=== PATIENT | female | born 1990 | race Caucasian/White ===

== ENCOUNTER 2020-07-10 07:23 | Inpatient (IN) | payer BC ==
[2020-07-10] MEDS ORDERED: Sodium Chloride 0.9% 10 ML Syringe FLUSH PRN ×2 (09:05→18:57)
[2020-07-10] MEDS ORDERED: Acetaminophen 325 MG Tab PO PRN ×2 (09:05→20:40)
[2020-07-10] MEDS ORDERED: Ondansetron 8 MG in Sodium Chloride 0.9% 50 ML IV PRN ×2 (09:14→09:23)
[2020-07-10] MEDS ORDERED: Oxytocin/Normal Saline 30 UNIT/500 ML BAG IV SCH ×2 (09:15→19:00)
[2020-07-10] MEDS ORDERED: Misoprostol 400 MCG (4 X 100 MCG TAB) RECTAL PRN ×2 (09:19→20:40)
[2020-07-10] MEDS ORDERED: Carboprost Tromethamine 250 MCG/1 ML Amp IM PRN ×2 (09:19→20:40)
[2020-07-10] MEDS ORDERED: Tranexamic Acid 1,000 MG in Sodium Chloride 0.9% 100 ML IV PRN ×3 (09:19→20:40)
[2020-07-10] MEDS ORDERED: Methylergonovine 0.2 MG/1 ML Amp IM PRN ×2 (09:19→20:40)
[2020-07-10] MEDS ORDERED: fentaNYL 100 MCG/2 ML SDV IVPUSH PRN (09:36)
[2020-07-10] MEDS: Lactated Ringers 1,000 ML IV SCH ×3 (09:50→19:50)
[2020-07-10] MEDS ORDERED: Ondansetron 4 MG/2 ML SDV IVPUSH PRN ×2 (10:43→20:40)
[2020-07-10] MEDS ORDERED: Famotidine 20 MG/2 ML SDV IVPUSH PRN (13:23)
[2020-07-10] MEDS ORDERED: ePHEDrine 50 MG/ML SDV IVPUSH ONE (15:00)
[2020-07-10] MEDS ORDERED: fentaNYL 100 MCG/2 ML SDV ITHECAL ONE (15:10)
[2020-07-10] MEDS ORDERED: Sodium Chloride 0.9% 20 ML SDV ONE (15:10)
[2020-07-10] MEDS ORDERED: EPINEPHrine 1 MG/1 ML Amp ONE ×2 (15:10→15:15)
[2020-07-10] MEDS ORDERED: fentaNYL 100 MCG/2 ML SDV ONE (15:15)
[2020-07-10] MEDS ORDERED: Sodium Bicarbonate 4.2% 2.5 MEQ/5 ML SDV ONE (15:16)
--- NOTE | 2020-07-10 16:01 | PCM.SN.2 ---
- Free Text/Narrative Note: Intrathecal. Sitting position, sterile prep and drape. 1% lidocaine w bicarb for skinwheal to L2 L3 interspace. Introducer, 24 ga pencan x 1. Pos CSF, neg heme, neg parasthesia. 0.1 ml pf 1:1000 epi, 20 mcg pf sufenta, 30 mcg pf fentanyl, 0.4 ml pf NS and 6 mg of 0.75% pf marcaine injected after CSF aspiration. Pt to L lateral position. Procedure time 1510 to 1545
[2020-07-10] MEDS ORDERED: ePHEDrine 50 MG/ML SDV ONE (16:53)
[2020-07-10] MEDS ORDERED: Citric Acid/Sodium Citrate Solution 30 ML Cup PO ONE (18:57)
[2020-07-10] MEDS ORDERED: ceFAZolin 2 GM in Premix Bag 1 BAG IV ONE (18:57)
[2020-07-10] MEDS ORDERED: Lactated Ringers 1,000 ML IV SCH ×2 (19:00→20:45)
--- NOTE | 2020-07-10 19:08 | PCM.PNLD ---
Labor Progress Note - VS & Meds Vital Signs: Last Vital Signs Temp 36.3 C 07/10/20 07:45 Pulse 92 07/10/20 07:45 Resp 16 07/10/20 07:45 BP 133/75 07/10/20 07:45 Pulse Ox 97 07/10/20 07:45 Active Medications: Current Medications Acetaminophen (Acetaminophen 325 Mg Tab) 650 mg PO Q4H PRN PRN Reason: Pain (1-3)/Fever Carboprost Tromethamine (Carboprost Tromethamine 250 Mcg/1 Ml Amp) 250 mcg IM ASDIRECTED PRN PRN Reason: HEMORRHAGE Famotidine (Famotidine 20 Mg/2 Ml Sdv) 20 mg IVPUSH DAILY PRN PRN Reason: Heartburn Last Admin: 07/10/20 14:00 Dose: 20 mg Documented by: Fentanyl (Fentanyl 100 Mcg/2 Ml Sdv) 100 mcg IVPUSH Q1H PRN PRN Reason: Pain (moderate 4-6) Last Admin: 07/10/20 13:54 Dose: 100 mcg Documented by: Lactated Ringer's (Ringers, Lactated) 1,000 mls @ 999 mls/hr IV ASDIRECTED AZAR Last Admin: 07/10/20 09:50 Dose: 999 mls/hr Documented by: Oxytocin/Sodium Chloride (Pitocin In Ns 30 Unit/500 Ml) 30 unit in 500 mls @ 2 mls/hr IV TITRATE AZAR; Protocol Last Titration: 07/10/20 11:30 Dose: 8 munits/min, 8 mls/hr Documented by: Tranexamic Acid 1,000 mg/ (Sodium Chloride) 110 mls @ 660 mls/hr IV ONETIME PRN PRN Reason: Bleeding Methylergonovine Maleate (Methylergonovine 0.2 Mg/1 Ml Amp) 0.2 mg IM ASDIRECTED PRN PRN Reason: Hemorrhage Misoprostol (Misoprostol 400 Mcg (4 X 100 Mcg Tab)) 800 mcg RECTAL ASDIRECTED PRN PRN Reason: Hemorrhage Ondansetron HCl (Ondansetron 4 Mg/2 Ml Sdv) 4 mg IVPUSH Q6H PRN PRN Reason: nausea Last Admin: 07/10/20 14:53 Dose: 4 mg Documented by: Sodium Chloride (Sodium Chloride 0.9% 10 Ml Syringe) 10 ml FLUSH ASDIRECTED PRN PRN Reason: Keep Vein Open Discontinued Medications Ephedrine Sulfate (Ephedrine 50 Mg/Ml Sdv) Confirm Administered Dose 50 mg .ROUTE .STK-MED ONE Stop: 07/10/20 16:54 Epinephrine HCl (Epinephrine 1 Mg/1 Ml Amp) Confirm Administered Dose 1 mg .RO [place] .STK-MED ONE Stop: 07/10/20 15:16 Last Admin: 07/10/20 16:46 Dose: Not Given Documented by: Fentanyl (Fentanyl 100 Mcg/2 Ml Sdv) Confirm Administered Dose 100 mcg .ROUTE .STK-MED ONE Stop: 07/10/20 15:16 Last Admin: 07/10/20 16:46 Dose: Not Given Documented by: Ondansetron HCl 8 mg/ Sodium (Chloride) 54 mls @ 200 mls/hr IV Q4H PRN PRN Reason: Nausea Sodium Bicarbonate (Sodium Bicarbonate 4.2% 2.5 Meq/5 Ml Sdv) Confirm Administered Dose 2.5 meq .ROUTE .STK-MED ONE Stop: 07/10/20 15:17 Last Admin: 07/10/20 16:46 Dose: Not Given Documented by: Sufentanil Citrate (Sufentanil 50 Mcg/1 Ml Amp) Confirm Administered Dose 50 mcg .ROUTE .STK-MED ONE Stop: 07/10/20 15:17 Last Admin: 07/10/20 16:46 Dose: Not Given Documented by: - Uterine Contractions Uterine Monitoring Mode: External Cidra Contraction Frequency (min): 3 Contraction Intensity: Moderate to Strong Uterine Resting Tone: Soft - Monitoring Monitor Mode: Doppler/Auscultation Heart Rate (FHR) Baseline: 150 Heart Rate (FHR) Variability: Moderate (6-25 bmp) Strip Review: Category II - Vaginal Exam Dilation (cm): Complete Station: 1 Cervical Position: Anterior Sterile Vaginal Exam Performed By: Junie Alaniz - Labor Progress (Free Text) Labor Progress: Patient was checked at 1715 and was noted to be complete. Patient began pushing shortly after with good progression of head noted. After approximately 1 hour of pushing, positioning was checked and head was noted to be asynclitic with occiput on the maternal left. After verbal consent was obtained, a low-profile vacuum was applied. Patient pushed well with good movement. There was one pop-off. After the pop-off, application of the vacuum became difficult due to caput and hair so a mighty vac was applied. Good head movement was noted with 1 contraction. There was a popoff during the 2nd contraction. head had moved to 1+ position with caput at 2+ position. Patient continued to push but with minimal movement of head. Some vaginal bleeding was also noted. After an additional 10 minutes of pushing with no movement of the head, positioning was again assessed and was noted to be OP. Therefore, I discussed options of 3rd attempt with the vacuum, continued pushing or primary section. Due to lack of head descent, maternal fatigue, and increased time of FHT recovery after pushing, the decision was made to proceed with primary section. Risks were discussed in detail, including but not limited to bleeding, maternal infection, injury and maternal injury. Written consent was obtained. Will proceed to OR DRISS. Dr. Junie Alaniz MD
[2020-07-10] MEDS ORDERED: Ondansetron 4 MG/2 ML SDV IV ONE (19:30)
[2020-07-10] MEDS ORDERED: Lactated Ringers 1,000 ML IV ONE (19:30)
[2020-07-10] MEDS ORDERED: Sodium Chloride 0.9% 10 ML Syringe IV ONE (19:30)
[2020-07-10] MEDS ORDERED: ePHEDrine 50 MG/ML SDV IV ONE ×2 (19:45→20:15)
[2020-07-10] MEDS ORDERED: Morphine PF 1 MG/ML Amp ITHECAL ONE (19:45)
[2020-07-10] MEDS ORDERED: Dexamethasone 4 MG/ML SDV IV ONE (19:45)
[2020-07-10] MEDS ORDERED: Ketorolac 30 MG/ML SDV IVPUSH ONE (20:15)
[2020-07-10] MEDS ORDERED: diphenhydrAMINE 50 MG/ML SDV IVPUSH PRN (20:40)
[2020-07-10] MEDS ORDERED: Naloxone 2 MG/2 ML Syringe IVPUSH PRN (20:40)
[2020-07-10] MEDS ORDERED: ePHEDrine 50 MG/ML SDV IVPUSH PRN (20:40)
--- NOTE | 2020-07-10 20:49 | PCM.PRNOTE ---
- Free Text/Narrative Note: Section Operative Report Date of Surgery: 07/10/2020 Surgeon: Junie Alaniz MD Paid Search Manager: MD Vidhya Chang, MS3 Pre-Operative Diagnosis: 39w3d malpresentation Failed vacuum delivery Post-Operative Diagnosis: 39w3d malpresentation Failed vacuum delivery LGA infant Procedure Performed: Primary low transverse section Anesthesia: Spinal EBL: 400 mL IVF: 800 mL Drains: Santos catheter with 200 mL of urine output Specimens: None Complications: None apparent Findings: Live male infant in OP position; APGARS: 9 at 1 minutes and 10 at 5 minutes. Weight: 4140 grams or 9 pounds, 2 ounces. Normal uterus, tubes, and ovaries. 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 Patient progressed to complete dilation and pushed for 1 hour 15 minutes. Due to malpresentation and maternal fatigue, a vacuum delivery was attempted but was unsuccessful (please see labor note for details). Patient was counseled on section for well being. She was counseled on the risks of . The patient understood that the risks of section include, but are not limited to, visceral or vascular injury, infection, blood loss and need for blood transfusion, prolonged hospitalization, and reoperation. The patient stated understanding and desired to proceed. All questions were answered. Procedure in Detail: The patient was taken to the operating room where spinal anesthesia was placed. Two grams of cefazolin (Ancef) were given for infection prophylaxis. She was then prepped and draped in routine fashion in dorsal supine position with a left chinchilla tilt. Santos catheter and pneumoboots were placed. A Pfannenstiel skin incision was made with a scalpel. The incision was carried down to the fascia sharply. The fascia was incised and extended laterally. The superior aspect of the fascia was grasped with Iván clamps; the underlying rectus muscle and pyramidalis was dissected off with sharp and blunt technique. In a similar fashion, the inferior aspect of the fascia was elevated with Iván clamps and the rectus muscle was dissected off. Hemostasis was achieved with the Bovie. The rectus musculature was in the midline down to the level of the pubic symphysis. Pre-peritoneal fatty tissue was bluntly dissected to expose the peritoneum. The peritoneum was found to be free of adherent bowel or bladder tissue and entered bluntly. The peritoneal opening was then extended superiorly and inferiorly to the bladder reflection with good visualization of the bladder. The Javi retractor was inserted. Intraabdominal survey revealed scant, clear peritoneal fluid and thinned-out lower uterine segment. The vesicouterine peritoneum was opened with a scissors and the bladder flap was developed. The lower uterine segment was incised with a scalpel. The amniotic sac was ruptured with an Allis clamp and clear fluid was noted. The uterine incision was extended bluntly with lateral and upward traction. The fetus was in OP position. The head was elevated out of the maternal pelvis with special attention paid to avoid using the uterine incision as a fulcrum. Pressure was applied to the head through the vagina by Elsy Mitchell RN. Gentle fundal pressure was applied once the head was brought into the incision. The infant was delivered with minimal difficulty. Bulb suctioning of the infant's nose and mouth was performed on the operative field. The cord was clamped and cut in standard fashion, and the was handed over to the awaiting nursery staff. IV oxytocin was initiated to facilitate uterine contractions. The placenta was delivered intact with manual message of the uterine fundus along with gentle cord traction. The inside of the uterus was gently wiped with a lap sponge to assure complete removal of remaining products of conception. The uterine incision was closed with 0 -Vicryl suture in a running locked fashion. A small area of bleeding along the left side of the incision was noted to be bleeding. A figure-of-8 stitch was placed using 2-0 Vicryl, and subsequent hemostasis was noted. A second imbricating layer of 0-Vicryl was also placed. The incision was inspected and hemostasis was achieved. The ovaries and tubes were visualized and found to be normal. The blood clots and fluid were wiped out of the abdomen and pelvis with moist laparotomy sponges. The uterine incision was re-inspected along with all other incised surfaces and good hemostasis was confirmed. The Javi retractor was removed. Peritoneal layer was closed with 2-0 Vicryl. The fascia was then closed with 0 looped PDS suture with care not to include any underlying abdominal contents. The skin was closed with 4-0 Monocryl suture on a Don needle in a subcuticular fashion. Sponge and instrument counts were reported as correct times two. Pt tolerated procedure well and was taken to PACU in stable condition. Junie Alaniz MD
[2020-07-10] MEDS: Simethicone 80 MG Tab.Chew PO SCH (23:32)
[2020-07-11] MEDS: Ketorolac 30 MG/ML SDV IVPUSH SCH ×3 (02:13→16:19)
[2020-07-11] MEDS: Lactated Ringers 1,000 ML IV SCH (05:37)
--- NOTE | 2020-07-11 06:50 | HP ---
PRIMARY OBSTETRICAL PROVIDER: Junie Alaniz MD. HISTORY OF PRESENT ILLNESS: The patient is a 30-year-old, G1, P0, at 39 weeks 3 days gestation based on last menstrual period of 10/08/2019 and confirmed by a 21 weeks 4 days ultrasound with estimated date of delivery of 07/14/2020, who presents for induction of labor secondary to Carol Ann-Danlos syndrome, extreme discomfort during related to connective tissue disease. Otherwise, the patient has been doing well with no recent change. She denies any abdominal contraction or abdominal pain, change in vaginal discharge or vaginal bleeding, leakage of vaginal fluid or clear fluid from the vagina, chest pain, shortness of breath, headaches, changes in vision, nausea, vomiting, fevers, chills. The patient does have impaired glucose tolerance in and did have a partial placenta previa early in , which has since resolved. The patient has no complaints. OBSTETRIC HISTORY: G1, P0. LABS: ABO blood group, B positive. Antibody screen, negative. Rubella, positive. Syphilis, nonreactive. Hep B surface antigen, nonreactive. HIV, nonreactive. Gonorrhea and chlamydia, not detected. Hep C antibody, nonreactive. Wet prep, negative. Glucose 1-hour, 161. Glucose tolerance test 3- hour, passed. Group B Streptococcus, negative. PAST MEDICAL HISTORY: Carol Ann-Danlos syndrome, obstructive sleep apnea, fibromyalgia, depression/anxiety. PAST SURGICAL HISTORY: Ovarian cyst removal of the right in 2002 (9 cm). Laparoscopic cholecystectomy in 2009. Bunionectomy bilaterally in 2002. MEDICATIONS: vitamin, ondansetron p.r.n., albuterol p.r.n., diclofenac 1% transdermal gel p.r.n., famotidine 20 mg, cyclobenzaprine 5 mg, tizanidine 4 mg, orphenadrine 100 mg. ALLERGIES: Gluten (intolerance, causes nausea). SOCIAL HISTORY: The patient denies cigarette smoking or drug use now or in the past. The patient is currently not using alcohol. She is to [employer]. Works from home. This is her first . FAMILY HISTORY: Mother and father have arthritis. Mother has asthma. Maternal grandmother has breast cancer. Paternal grandfather, cancer. Maternal grandfather and paternal grandmother, diabetes. Mother, diabetes. Mother, heart disease. Father, hypertension. Brother, no known diseases. Mother also had uterine fibroids and hysterectomy at age 35, Carol Ann-Danlos syndrome. Sister also has Carol Ann-Danlos syndrome. Brother also has Carol Ann-Danlos syndrome. Maternal grandmother had uterine fibroids and hysterectomy. No family history of colon cancer. REVIEW OF SYSTEMS: General: No increased fatigue, malaise. Respiratory: No shortness of breath. Cardiovascular: No chest pain or acute change in lower extremity edema. Gastrointestinal: No abdominal pain. Sporadic contractions. : No vaginal bleeding, change in vaginal discharge, or leakage of fluid from the vagina. Neuromuscular: Significant for hip and back discomfort, worse on the left. PHYSICAL EXAMINATION: Admission Vitals: Height 5 feet 10 inches, weight 221 pounds, temperature 97.4 degrees Fahrenheit, pulse 92 beats per minute, blood pressure 133/75, respiratory rate 16 breaths per minute, O2 saturation by pulse oximetry 97%. General: Alert, well-appearing female, in no acute distress, sitting up in bed. Lungs: Clear to auscultation bilaterally with no adventitial breath sounds. Chest: Symmetric chest expansion. Heart: Regular rate and rhythm with no murmur. Abdomen: Gravid, nontender. FHT present with FHT category 1 tracing, baseline of 145, multiple accelerations, no decelerations. Tocometer revealing contractions every approximately 5 to 9 minutes. Pelvic: Normal female external genitalia with normal vulva, vagina, and cervix. Dilated to 5 cm, 80% effaced, -1 station. Bag intact. Extremities: Nontender. No redness or erythema. Lower extremities, no edema. Skin: No lesions noted. Normal color and turgor. ASSESSMENT: 1. Intrauterine at 39 weeks 3 days gestation based on last menstrual period. 2. 1, para 0. 3. Carol Ann-Danlos syndrome. 4. Impaired glucose tolerance in with a normal 3 hour glucose tolerance test. PLAN: We will admit the patient for induction of labor with labor augmentation with Pitocin and continue normal nursing cares as clinically indicated. We will plan for artificial rupture of membranes when clinically indicated. Maternal pain management will be accomplished via intrathecal anesthesia as well as supplemental fentanyl and nitrous gas as needed. Anticipate normal spontaneous vaginal delivery. Post delivery, we will closely monitor infant on blood glucose. [facility] /[id number] Patient was personally seen and examined with the medical student. I reviewed the noted scribed on my behalf and necessary changes have been made to reflect my opinion on the history, exam, assessment, and plan. Junie Alaniz MD [facility]
[2020-07-11] MEDS: Prenatal Multivitamin with Calcium/Folic Acid/Iron Tab PO SCH (08:20)
[2020-07-11] MEDS: Simethicone 80 MG Tab.Chew PO SCH ×4 (08:20→20:39)
--- NOTE | 2020-07-11 11:37 | PN ---
DATE: 07/11/2020 PRIMARY OBSTETRICAL PROVIDER: Junie Alaniz MD. PREOPERATIVE DIAGNOSES: 1. Intrauterine at 39 weeks 2 days gestation based on last menstrual period. 2. 1, para 0. 3. Carol Ann-Danlos syndrome. 4. Impaired glucose tolerance in with a normal 3-hour glucose tolerance test. 5. Induction of labor. 6. malpresentation. 7. Failed vacuum delivery. POSTOPERATIVE DIAGNOSES: 1. Intrauterine at 39 weeks 2 days gestation based on last menstrual period, status post primary low-transverse section. 2. 1, para 1-0-0-1. 3. Carol Ann-Danlos syndrome. 4. Impaired glucose tolerance in with a normal 3-hour glucose tolerance test. 5. Induction of labor. 6. malpresentation, status post PLTC. 7. Failed vacuum delivery, status post PLTC. 8. Ahoml-tlb-fdafrrkxmzi-age infant. 9. Anemia of acute blood loss. SUBJECTIVE: The patient is doing well status post section with no complaints this morning. She states her pain is currently well controlled. She is having some mild abdominal tenderness, proportionate to her postoperative course. She denies any fevers, chills, chest pain, or shortness of breath. She has not attempted oral intake as of yet, but will be having some breakfast this morning. The patient did experience significant nausea throughout labor and even during delivery. Santos catheter in place. The patient is lying in bed with EULOGIO hose and sequential compression devices in place. To the patient's knowledge, her lochia is appropriate. The patient has initiated , and this appears to be going well so far. EBL 400 mL. OBJECTIVE: Vital Signs: Temperature 98.0 degrees Fahrenheit, pulse 87 beats per minute, blood pressure 112/54 mmHg, respiratory rate 16 breaths per minute. General: Patient is sleeping soundly in bed, but awakens to voice, becomes alert, and appears in no acute distress with appropriate affect. Heart: Regular rate and rhythm. Normal S1, S2 without murmur. Lungs: Clear to auscultation bilaterally. No adventitial breath sounds. Symmetric air entry and chest expansion bilaterally. Abdomen: Soft, nontender. Fundus firm at the level of the umbilicus. Dressing in place, clean, dry, and intact. Extremities: Nontender, nonerythematous lower extremities with scant peripheral edema. LABORATORY DATA: hematology: White blood cell count 15.8, hemoglobin 10.1, platelet count 195. Hematology on admission: White blood cell count 7.9, hemoglobin 13.6, and platelet count 207. SARS-CoV-2 RNA (BETI) negative. ASSESSMENT AND PLAN: See above for postoperative diagnoses. The patient is recovering well status and post section. We will continue normal postoperative and routine cares with encouragement of time with infant at the breast. We will advance activity as tolerated and anticipate discharge home on day #3. The patient appears to be asymptomatic from anemia with normal vital signs. We will continue to monitor and will resume vitamin and initiate iron supplementation (325 mg ferrous sulfate daily). FOLLOWUP PHYSICIAN: Junie Alaniz MD [facility] /[id number] Patient was personally seen and examined with the medical student. I reviewed the noted scribed on my behalf and necessary changes have been made to reflect my opinion on the history, exam, assessment, and plan. Junie Alaniz MD [facility]
[2020-07-11] MEDS: Docusate Sodium 100 MG Cap PO PRN (13:25)
[2020-07-11] MEDS: Acetaminophen/oxyCODONE 325-5 MG Tab PO PRN ×3 (13:26→23:48)
[2020-07-11] MEDS: Ferrous Sulfate 325 MG Tab PO SCH (17:32)
[2020-07-12] MEDS: Ibuprofen 800 MG Tab PO PRN ×3 (00:41→19:11)
[2020-07-12] MEDS: Acetaminophen/oxyCODONE 325-5 MG Tab PO PRN ×4 (04:22→19:12)
[2020-07-12] MEDS: Ferrous Sulfate 325 MG Tab PO SCH (08:46)
[2020-07-12] MEDS: Docusate Sodium 100 MG Cap PO PRN ×2 (08:46→19:12)
[2020-07-12] MEDS: Prenatal Multivitamin with Calcium/Folic Acid/Iron Tab PO SCH (08:46)
[2020-07-12] MEDS: Simethicone 80 MG Tab.Chew PO SCH ×3 (08:47→21:00)
--- NOTE | 2020-07-12 09:45 | PCM.PNPP ---
- General Info Date of Service: 07/12/20 Subjective Update: PPD#2. Overall, doing well. Santos has been removed, and she is urinating. Has only bed out of bed for short amounts of time. Does complain of some nausea this morning. No fever, chills, dizziness, lightheadedness. Drainage on dressing has remained stable. is going well. Patient did report right thigh numbness yesterday--this remains unchanged. No concerns per patient or per nursing staff. Functional Status: Reports: Pain Controlled, Tolerating Diet, Ambulating, Urinating - Review of Systems General: Reports: Fatigue HEENT: Reports: No Symptoms Pulmonary: Reports: No Symptoms Cardiovascular: Reports: No Symptoms Gastrointestinal: Reports: Nausea. Denies: Vomiting Genitourinary: Reports: No Symptoms Musculoskeletal: Reports: Back Pain, Leg Pain Skin: Reports: No Symptoms Neurological: Reports: Numbness (Right lateral thigh) Psychiatric: Reports: No Symptoms - General Info Date of Service: 07/12/20 - Patient Data Vital Signs - Most Recent: Last Vital Signs Temp 36.7 C 07/12/20 04:00 Pulse 87 07/12/20 04:00 Resp 16 07/12/20 04:00 BP 105/68 07/12/20 04:00 Pulse Ox 98 07/11/20 20:00 Weight - Most Recent: 100.244 kg I&O - Last 24 Hours: Intake & Output 07/11/20 07/12/20 07/12/20 22:59 06:59 14:59 Intake Total 900 Output Total 175 327% Balance -85 -327% Med Orders - Current: Current Medications Acetaminophen (Acetaminophen 325 Mg Tab) 650 mg PO Q6H PRN PRN Reason: Mild Pain (1-3) or Fever Carboprost Tromethamine (Carboprost Tromethamine 250 Mcg/1 Ml Amp) 250 mcg IM ONETIME PRN PRN Reason: Bleeding Diphenhydramine HCl (Diphenhydramine 50 Mg/Ml Sdv) 25 mg IVPUSH Q6H PRN PRN Reason: Itching or Nausea Docusate Sodium (Docusate Sodium 100 Mg Cap) 100 mg PO Q12H PRN PRN Reason: Constipation Last Admin: 07/12/20 08:46 Dose: 100 mg Documented by: Ephedrine Sulfate (Ephedrine 50 Mg/Ml Sdv) 5 mg IVPUSH SEECOMMENT PRN PRN Reason: Other Famotidine (Famotidine 20 Mg/2 Ml Sdv) 20 mg IVPUSH DAILY PRN PRN Reason: Heartburn Last Admin: 07/10/20 14:00 Dose: 20 mg Documented by: Ferrous Sulfate (Ferrous Sulfate 325 Mg Tab) 325 mg PO WITHBREAKFAST [facility] Last Admin: 07/12/20 08:46 Dose: 325 mg Documented by: Lactated Ringer's (Ringers, Lactated) 1,000 mls @ 125 mls/hr IV ASDIRECTED [facility] Last Admin: 07/11/20 05:37 Dose: 125 mls/hr Documented by: Lactated Ringer's (Ringers, Lactated) 1,000 mls @ 500 mls/hr IV .BOLUS [facility] Last Admin: 07/10/20 17:30 Dose: 500 mls/hr Documented by: Oxytocin/Sodium Chloride (Pitocin In Ns 30 Unit/500 Ml) 30 unit in 500 mls @ 2 mls/hr IV TITRATE [facility]; Protocol Last Titration: 07/10/20 23:45 Dose: 0 munits/min, 0 mls/hr Documented by: Lactated Ringer's (Ringers, Lactated) 1,000 mls @ 125 mls/hr IV ASDIRECTED [facility] Tranexamic Acid 1,000 mg/ (Sodium Chloride) 110 mls @ 660 mls/hr IV ONETIME PRN PRN Reason: Bleeding Ibuprofen (Ibuprofen 800 Mg Tab) 800 mg PO Q8H PRN PRN Reason: Cramping Last Admin: 07/12/20 08:46 Dose: 800 mg Documented by: Methylergonovine Maleate (Methylergonovine 0.2 Mg/1 Ml Amp) 0.2 mg IM ONETIME PRN PRN Reason: Excessive Vaginal Bleeding Misoprostol (Misoprostol 400 Mcg (4 X 100 Mcg Tab)) 800 mcg RECTAL ASDIRECTED PRN PRN Reason: Excessive bleeding Naloxone HCl (Naloxone 2 Mg/2 Ml Syringe) 0.1 mg IVPUSH SEECOMMENT PRN PRN Reason: Respiratory Depression Ondansetron HCl (Ondansetron 4 Mg/2 Ml Sdv) 4 mg IVPUSH Q4H PRN PRN Reason: Nausea/Vomiting Oxycodone/Acetaminophen (Acetaminophen/Oxycodone 325-5 Mg Tab) 1 tab PO Q4H PRN PRN Reason: Pain (moderate 4-6) Last Admin: 07/12/20 08:46 Dose: 1 tab Documented by: Oxycodone/Acetaminophen (Acetaminophen/Oxycodone 325-5 Mg Tab) 2 tab PO Q4H PRN PRN Reason: Pain (moderate 4-6) Last Admin: 07/12/20 04:22 Dose: 2 tab Documented by: Prenat Multivit/Cecil/Iron/Folic Ac ( Multivitamin With Calcium/Folic Acid/Iron Tab) 1 each PO DAILY [facility] Last Admin: 07/12/20 08:46 Dose: 1 each Documented by: Simethicone (Simethicone 80 Mg Tab.Chew) 160 mg PO QID [facility] Last Admin: 07/12/20 08:47 Dose: 160 mg Documented by: Sodium Chloride (Sodium Chloride 0.9% 10 Ml Syringe) 10 ml FLUSH ASDIRECTED PRN PRN Reason: Keep Vein Open Discontinued Medications Acetaminophen (Acetaminophen 325 Mg Tab) 650 mg PO Q4H PRN PRN Reason: Pain (1-3)/Fever Carboprost Tromethamine (Carboprost Tromethamine 250 Mcg/1 Ml Amp) 250 mcg IM ASDIRECTED PRN PRN Reason: HEMORRHAGE Citric Acid/Sodium Citrate (Citric Acid/Sodium Citrate Solution 30 Ml Cup) 30 ml PO ONETIME ONE Stop: 07/10/20 18:58 Last Admin: 07/10/20 19:30 Dose: 30 ml Documented by: Dexamethasone (Dexamethasone 4 Mg/Ml Sdv) 8 mg IV .STK-MED ONE Stop: 07/10/20 19:46 Ephedrine Sulfate (Ephedrine 50 Mg/Ml Sdv) Confirm Administered Dose 50 mg .ROUTE .STK-MED ONE Stop: 07/10/20 16:54 Last Admin: 07/10/20 20:02 Dose: Not Given Documented by: Ephedrine Sulfate (Ephedrine 50 Mg/Ml Sdv) 10 mg IVPUSH ONETIME ONE Stop: 07/10/20 15:01 Last Admin: 07/10/20 16:59 Dose: 10 mg Documented by: Ephedrine Sulfate (Ephedrine 50 Mg/Ml Sdv) 10 mg IV .STK-MED ONE Stop: 07/10/20 19:46 Ephedrine Sulfate (Ephedrine 50 Mg/Ml Sdv) 10 mg IV .STK-MED ONE Stop: 07/10/20 20:16 Epinephrine HCl (Epinephrine 1 Mg/1 Ml Amp) Confirm Administered Dose 1 mg .ROUTE .STK-MED ONE Stop: 07/10/20 15:16 Last Admin: 07/10/20 16:46 Dose: Not Given Documented by: Epinephrine HCl (Epinephrine 1 Mg/1 Ml Amp) 0.1 mg .XX .STK-MED ONE Stop: 07/10/20 15:11 Fentanyl (Fentanyl 100 Mcg/2 Ml Sdv) 100 mcg IVPUSH Q1H PRN PRN Reason: Pain (moderate 4-6) Last Admin: 07/10/20 13:54 Dose: 100 mcg Documented by: Fentanyl (Fentanyl 100 Mcg/2 Ml Sdv) Confirm Administered Dose 100 mcg .ROUTE .STK-MED ONE Stop: 07/10/20 15:16 Last Admin: 07/10/20 16:46 Dose: Not Given Documented by: Fentanyl (Fentanyl 100 Mcg/2 Ml Sdv) 30 mcg ITHECAL .STK-MED ONE Stop: 07/10/20 15:11 Lactated Ringer's (Ringers, Lactated) 1,000 mls @ 999 mls/hr IV ASDIRECTED [facility] Last Admin: 07/10/20 19:50 Dose: 999 mls/hr Documented by: Oxytocin/Sodium Chloride (Pitocin In Ns 30 Unit/500 Ml) 30 unit in 500 mls @ 2 mls/hr IV TITRATE [facility]; Protocol Last Titration: 07/10/20 14:00 Dose: 10 munits/min, 10 mls/hr Documented by: Ondansetron HCl 8 mg/ Sodium (Chloride) 54 mls @ 200 mls/hr IV Q4H PRN PRN Reason: Nausea Tranexamic Acid 1,000 mg/ (Sodium Chloride) 110 mls @ 660 mls/hr IV ONETIME PRN PRN Reason: Bleeding Tranexamic Acid 1,000 mg/ (Sodium Chloride) 110 mls @ 660 mls/hr IV ONETIME PRN PRN Reason: Bleeding Cefazolin Sodium/Dextrose 2 gm (/ Premix) 50 mls @ 100 mls/hr IV ONETIME ONE Stop: 07/10/20 19:26 Last Admin: 07/10/20 19:24 Dose: 100 mls/hr Documented by: Cefazolin Sodium/Dextrose (Ancef 2 Gm/50 Ml) Confirm Administered Dose 50 mls @ as directed .ROUTE .STK-MED ONE Stop: 07/10/20 19:08 Lactated Ringer's (Ringers, Lactated) 1,000 mls @ as directed IV .STK-MED ONE Stop: 07/10/20 19:31 Ketorolac Tromethamine (Ketorolac 30 Mg/Ml Sdv) 15 mg IVPUSH Q6H [facility] Stop: 07/11/20 14:16 Last Admin: 07/11/20 16:19 Dose: 15 mg Documented by: Ketorolac Tromethamine (Ketorolac 30 Mg/Ml Sdv) 30 mg IVPUSH .STK-MED ONE Stop: 07/10/20 20:16 Methylergonovine Maleate (Methylergonovine 0.2 Mg/1 Ml Amp) 0.2 mg IM ASDIRECTED PRN PRN Reason: Hemorrhage Misoprostol (Misoprostol 400 Mcg (4 X 100 Mcg Tab)) 800 mcg RECTAL ASDIRECTED PRN PRN Reason: Hemorrhage Morphine Sulfate (Morphine Pf 1 Mg/Ml Amp) 0.2 mg ITHECAL .STK-MED ONE Stop: 07/10/20 19:46 Ondansetron HCl (Ondansetron 4 Mg/2 Ml Sdv) 4 mg IVPUSH Q6H PRN PRN Reason: nausea Last Admin: 07/10/20 14:53 Dose: 4 mg Documented by: Ondansetron HCl (Ondansetron 4 Mg/2 Ml Sdv) 4 mg IV .STK-MED ONE Stop: 07/10/20 19:31 Sodium Bicarbonate (Sodium Bicarbonate 4.2% 2.5 Meq/5 Ml Sdv) Confirm Administered Dose 2.5 meq .ROUTE .STK-MED ONE Stop: 07/10/20 15:17 Last Admin: 07/10/20 16:46 Dose: Not Given Documented by: Sodium Bicarbonate (Sodium Bicarbonate 4.2% 5 Meq/10 Ml Syringe) 0.5 meq .XX .STK-MED ONE Stop: 07/10/20 15:11 Sodium Chloride (Sodium Chloride 0.9% 10 Ml Syringe) 10 ml FLUSH ASDIRECTED PRN PRN Reason: Keep Vein Open Sodium Chloride (Sodium Chloride 0.9% 20 Ml Sdv) 0.4 ml .XX .STK-MED ONE Stop: 07/10/20 15:11 Sodium Chloride (Sodium Chloride 0.9% 10 Ml Syringe) 10 ml IV .STK-MED ONE Stop: 07/10/20 19:31 Sufentanil Citrate (Sufentanil 50 Mcg/1 Ml Amp) Confirm Administered Dose 50 mcg .ROUTE .STK-MED ONE Stop: 07/10/20 15:17 Last Admin: 07/10/20 16:46 Dose: Not Given Documented by: Sufentanil Citrate (Sufentanil 50 Mcg/1 Ml Amp) 20 mcg ITHECAL .STK-MED ONE Stop: 07/10/20 15:11 - Infant Interaction Disposition, : [place] to Nursery Infant Feeding: Breastfed Infant; Nursed Well Support Person: - Recovery Exam Fundal Tone: Firm Fundal Level: At Umbilicus Fundal Placement: Midline Lochia Amount: Small Lochia Color: Rubra/Red Perineum Description: Intact, Minimal Bruising/Swelling Episiotomy/Laceration: None Bladder Status: Indwelling Catheter in Place Urinary Elimination: Indwelling Catheter - Exam General: Alert, Oriented Neck: Supple Lungs: Clear to Auscultation, Normal Respiratory Effort Cardiovascular: Regular Rate, Regular Rhythm, No Murmurs GI/Abdominal Exam: Soft Skin: Warm, Dry, Intact Wound/Incisions: Dressing Dry and Intact, Drainage (Stable) Neurological: No New Focal Deficit - Problem List & Annotations (1) care in third trimester SNOMED Code(s): 867825860, 70473470, 94157404, 918152697, 095473128 Code(s): Z34.93 - ENCNTR FOR SUPRVSN OF NORMAL PREG, UNSP, THIRD TRIMESTER Status: Acute Current Visit: Yes (2) Impaired glucose in , antepartum SNOMED Code(s): 975161160, 158350726 Code(s): O99.810 - ABNORMAL GLUCOSE COMPLICATING Status: Acute Current Visit: Yes (3) Failed vacuum extraction, delivered, current hospitalization SNOMED Code(s): 494889360, 306589090 Code(s): O66.5 - ATTEMPTED APPLICATION OF VACUUM EXTRACTOR AND FORCEPS Status: Acute Current Visit: Yes (4) malpresentation SNOMED Code(s): 56970331, 76227725 Code(s): O32.9XX0 - MATERNAL CARE FOR MALPRESENTATION OF FETUS, UNSP, UNSP Status: Acute Current Visit: Yes (5) Status post section SNOMED Code(s): 912587528, 403726281 Code(s): Z98.891 - HISTORY OF UTERINE SCAR FROM PREVIOUS SURGERY Status: Acute Current Visit: Yes - Problem List Review Problem List Initiated/Reviewed/Updated: Yes - Assessment Assessment:: 30-year-old, now , s/p primary section at 39w3d for failed vacuum delivery and malpresentation - Plan Plan:: 1. Continue routine postoperative cares 2. Zofran ODT every 8 hours as needed for nausea 3. Continue to monitor leg numbness 4. well 5. Anticipate discharge 07/13/2020 Junie Alaniz MD
[2020-07-12] MEDS: Ondansetron 4 MG Tab.DIS PO PRN ×2 (12:43→20:43)
[2020-07-13] MEDS: Simethicone 80 MG Tab.Chew PO SCH ×2 (00:13→08:37)
[2020-07-13] MEDS: Acetaminophen/oxyCODONE 325-5 MG Tab PO PRN (02:24)
[2020-07-13] MEDS: Ferrous Sulfate 325 MG Tab PO SCH (08:34)
[2020-07-13] MEDS: Prenatal Multivitamin with Calcium/Folic Acid/Iron Tab PO SCH (08:34)
[2020-07-13] MEDS: Ibuprofen 800 MG Tab PO PRN (08:35)
[2020-07-13] MEDS: Docusate Sodium 100 MG Cap PO PRN (08:35)
[2020-07-13] MEDS: Ondansetron 4 MG Tab.DIS PO PRN (08:37)
--- NOTE | 2020-07-13 10:51 | PCM.DCSUM1 ---
Discharge Summary - Hospital Course Free Text/Narrative:: 30-year-old now s/p primary section at 39w3d for failed vacuum delivery, cephalopelvic disproportion, malpresentation and LGA Diagnosis: Stroke: No - Discharge Data Discharge Date: 07/13/20 Discharge Disposition: Home, Self-Care 01 Condition: Good - Referral to Home Health Primary Care Physician: Estefanía Alaniz MD - Discharge Diagnosis/Problem(s) (1) care in third trimester SNOMED Code(s): 512730531, 90009394, 41000240, 129254562, 928045212 ICD Code: Z34.93 - ENCNTR FOR SUPRVSN OF NORMAL PREG, UNSP, THIRD TRIMESTER Status: Acute Current Visit: Yes (2) Impaired glucose in , antepartum SNOMED Code(s): 056465474, 760286019 ICD Code: O99.810 - ABNORMAL GLUCOSE COMPLICATING Status: Acute Current Visit: Yes (3) Failed vacuum extraction, delivered, current hospitalization SNOMED Code(s): 102030641, 825085570 ICD Code: O66.5 - ATTEMPTED APPLICATION OF VACUUM EXTRACTOR AND FORCEPS Status: Acute Current Visit: Yes (4) malpresentation SNOMED Code(s): 36777791, 35469694 ICD Code: O32.9XX0 - MATERNAL CARE FOR MALPRESENTATION OF FETUS, UNSP, UNSP Status: Acute Current Visit: Yes (5) Status post section SNOMED Code(s): 863398569, 077058555 ICD Code: Z98.891 - HISTORY OF UTERINE SCAR FROM PREVIOUS SURGERY Status: Acute Current Visit: Yes - Patient Summary/Data Operative Procedure(s) Performed: Primary low transverse section Complications: None Consults: None Labs Pending at D/C: None Recommended Follow-up Testing/Procedures: None Planned Operative Procedure(s) after DC: None Hospital Course: Please see subjective section - Patient Instructions Diet: Usual Diet as Tolerated, Drink 8-10+ Glasses/Day Activity: Apply Ice, As Tolerated, No Lifting Over 20 Pounds Driving: Do Not Drive (while taking pain medication) Showering/Bathing: May Shower Wound/Incision Care: Keep Operative Site/Wound Site Clean and Dry Notify Provider of: Fever, Increased Pain, Swelling and Redness, Drainage, Nausea and/or Vomiting - Discharge Plan *PRESCRIPTION DRUG MONITORING PROGRAM REVIEWED*: No *COPY OF PRESCRIPTION DRUG MONITORING REPORT IN PATIENT BERTA: No Home Medications: Home Meds Pnv No.95/Ferrous Fum/Folic AC [ Tablet] 1 each PO DAILY 07/10/20 [History] Acetaminophen [Tylenol] 650 mg PO Q6H PRN tablet 07/13/20 [Rx] Docusate Sodium [Colace] 100 mg PO Q12H PRN cap 07/13/20 [Rx] Ferrous Sulfate 325 mg PO WITHBREAKFAST tablet 07/13/20 [Rx] Ibuprofen [Motrin] 800 mg PO Q8H PRN tablet 07/13/20 [Rx] Ondansetron [Zofran ODT] 4 mg PO Q8H PRN tab.dis 07/13/20 [Rx] - Discharge Summary/Plan Comment DC Time >30 min.: No Discharge Summary/Plan Comment: Discharge home today. Follow-up July 16 for incision check and in 6-8 weeks for check. Reasons to return to clinic sooner or present to the ED were reviewed, and all questions were answered. - General Info Date of Service: 07/13/20 Subjective Update: Doing well. Tolerating a general diet. Voiding and ambulating without difficulty. Has some mild nausea that is resolved with Zofran. Had some nausea due to Percocet--has tolerated hydrocodone in the past. is going well--milk has not come in yet so is supplementing some at the breast. No concerns per patient or per nursing staff. Functional Status: Reports: Pain Controlled, Tolerating Diet, Ambulating, Urinating. Denies: New Symptoms - Review of Systems General: Reports: Fatigue HEENT: Reports: No Symptoms Pulmonary: Reports: No Symptoms Cardiovascular: Reports: No Symptoms Gastrointestinal: Reports: Nausea. Denies: Vomiting Genitourinary: Reports: No Symptoms Musculoskeletal: Reports: Back Pain Skin: Reports: No Symptoms Psychiatric: Reports: No Symptoms - Patient Data Vitals - Most Recent: Last Vital Signs Temp 36.7 C 07/12/20 20:00 Pulse 98 07/12/20 20:00 Resp 18 07/12/20 20:00 BP 130/65 07/12/20 20:00 Pulse Ox 100 07/12/20 20:00 Weight - Most Recent: 100.244 kg Med Orders - Current: Current Medications Acetaminophen (Acetaminophen 325 Mg Tab) 650 mg PO Q6H PRN PRN Reason: Mild Pain (1-3) or Fever Carboprost Tromethamine (Carboprost Tromethamine 250 Mcg/1 Ml Amp) 250 mcg IM ONETIME PRN PRN Reason: Bleeding Diphenhydramine HCl (Diphenhydramine 50 Mg/Ml Sdv) 25 mg IVPUSH Q6H PRN PRN Reason: Itching or Nausea Docusate Sodium (Docusate Sodium 100 Mg Cap) 100 mg PO Q12H PRN PRN Reason: Constipation Last Admin: 07/13/20 08:35 Dose: 100 mg Documented by: Ephedrine Sulfate (Ephedrine 50 Mg/Ml Sdv) 5 mg IVPUSH SEECOMMENT PRN PRN Reason: Other Famotidine (Famotidine 20 Mg/2 Ml Sdv) 20 mg IVPUSH DAILY PRN PRN Reason: Heartburn Last Admin: 07/10/20 14:00 Dose: 20 mg Documented by: Ferrous Sulfate (Ferrous Sulfate 325 Mg Tab) 325 mg PO WITHBREAKFAST [facility] Last Admin: 07/13/20 08:34 Dose: 325 mg Documented by: Lactated Ringer's (Ringers, Lactated) 1,000 mls @ 125 mls/hr IV ASDIRECTED [facility] Last Admin: 07/11/20 05:37 Dose: 125 mls/hr Documented by: Lactated Ringer's (Ringers, Lactated) 1,000 mls @ 500 mls/hr IV .BOLUS [facility] Last Admin: 07/10/20 17:30 Dose: 500 mls/hr Documented by: Oxytocin/Sodium Chloride (Pitocin In Ns 30 Unit/500 Ml) 30 unit in 500 mls @ 2 mls/hr IV TITRATE [facility]; Protocol Last Titration: 07/10/20 23:45 Dose: 0 munits/min, 0 mls/hr Documented by: Lactated Ringer's (Ringers, Lactated) 1,000 mls @ 125 mls/hr IV ASDIRECTED [facility] Tranexamic Acid 1,000 mg/ (Sodium Chloride) 110 mls @ 660 mls/hr IV ONETIME PRN PRN Reason: Bleeding Ibuprofen (Ibuprofen 800 Mg Tab) 800 mg PO Q8H PRN PRN Reason: Cramping Last Admin: 07/13/20 08:35 Dose: 800 mg Documented by: Methylergonovine Maleate (Methylergonovine 0.2 Mg/1 Ml Amp) 0.2 mg IM ONETIME PRN PRN Reason: Excessive Vaginal Bleeding Misoprostol (Misoprostol 400 Mcg (4 X 100 Mcg Tab)) 800 mcg RECTAL ASDIRECTED PRN PRN Reason: Excessive bleeding Naloxone HCl (Naloxone 2 Mg/2 Ml Syringe) 0.1 mg IVPUSH SEECOMMENT PRN PRN Reason: Respiratory Depression Ondansetron HCl (Ondansetron 4 Mg/2 Ml Sdv) 4 mg IVPUSH Q4H PRN PRN Reason: Nausea/Vomiting Ondansetron HCl (Ondansetron 4 Mg Tab.Dis) 4 mg PO Q8H PRN PRN Reason: Nausea Last Admin: 07/13/20 08:37 Dose: 4 mg Documented by: Oxycodone/Acetaminophen (Acetaminophen/Oxycodone 325-5 Mg Tab) 1 tab PO Q4H PRN PRN Reason: Pain (moderate 4-6) Last Admin: 07/12/20 08:46 Dose: 1 tab Documented by: Oxycodone/Acetaminophen (Acetaminophen/Oxycodone 325-5 Mg Tab) 2 tab PO Q4H PRN PRN Reason: Pain (moderate 4-6) Last Admin: 07/13/20 02:24 Dose: 2 tab Documented by: Prenat Multivit/Purdy/Iron/Folic Ac ( Multivitamin With Calcium/Folic Acid/Iron Tab) 1 each PO DAILY [facility] Last Admin: 07/13/20 08:34 Dose: 1 each Documented by: Simethicone (Simethicone 80 Mg Tab.Chew) 160 mg PO QID [facility] Last Admin: 07/13/20 08:37 Dose: 160 mg Documented by: Sodium Chloride (Sodium Chloride 0.9% 10 Ml Syringe) 10 ml FLUSH ASDIRECTED PRN PRN Reason: Keep Vein Open Discontinued Medications Acetaminophen (Acetaminophen 325 Mg Tab) 650 mg PO Q4H PRN PRN Reason: Pain (1-3)/Fever Carboprost Tromethamine (Carboprost Tromethamine 250 Mcg/1 Ml Amp) 250 mcg IM ASDIRECTED PRN PRN Reason: HEMORRHAGE Citric Acid/Sodium Citrate (Citric Acid/Sodium Citrate Solution 30 Ml Cup) 30 ml PO ONETIME ONE Stop: 07/10/20 18:58 Last Admin: 07/10/20 19:30 Dose: 30 ml Documented by: Dexamethasone (Dexamethasone 4 Mg/Ml Sdv) 8 mg IV .STK-MED ONE Stop: 07/10/20 19:46 Ephedrine Sulfate (Ephedrine 50 Mg/Ml Sdv) Confirm Administered Dose 50 mg .ROUTE .STK-MED ONE Stop: 07/10/20 16:54 Last Admin: 07/10/20 20:02 Dose: Not Given Documented by: Ephedrine Sulfate (Ephedrine 50 Mg/Ml Sdv) 10 mg IVPUSH ONETIME ONE Stop: 07/10/20 15:01 Last Admin: 07/10/20 16:59 Dose: 10 mg Documented by: Ephedrine Sulfate (Ephedrine 50 Mg/Ml Sdv) 10 mg IV .STK-MED ONE Stop: 07/10/20 19:46 Ephedrine Sulfate (Ephedrine 50 Mg/Ml Sdv) 10 mg IV .STK-MED ONE Stop: 07/10/20 20:16 Epinephrine HCl (Epinephrine 1 Mg/1 Ml Amp) Confirm Administered Dose 1 mg .ROUTE .STK-MED ONE Stop: 07/10/20 15:16 Last Admin: 07/10/20 16:46 Dose: Not Given Documented by: Epinephrine HCl (Epinephrine 1 Mg/1 Ml Amp) 0.1 mg .XX .STK-MED ONE Stop: 07/10/20 15:11 Fentanyl (Fentanyl 100 Mcg/2 Ml Sdv) 100 mcg IVPUSH Q1H PRN PRN Reason: Pain (moderate 4-6) Last Admin: 07/10/20 13:54 Dose: 100 mcg Documented by: Fentanyl (Fentanyl 100 Mcg/2 Ml Sdv) Confirm Administered Dose 100 mcg .ROUTE .STK-MED ONE Stop: 07/10/20 15:16 Last Admin: 07/10/20 16:46 Dose: Not Given Documented by: Fentanyl (Fentanyl 100 Mcg/2 Ml Sdv) 30 mcg ITHECAL .STK-MED ONE Stop: 07/10/20 15:11 Lactated Ringer's (Ringers, Lactated) 1,000 mls @ 999 mls/hr IV ASDIRECTED [facility] Last Admin: 07/10/20 19:50 Dose: 999 mls/hr Documented by: Oxytocin/Sodium Chloride (Pitocin In Ns 30 Unit/500 Ml) 30 unit in 500 mls @ 2 mls/hr IV TITRATE [facility]; Protocol Last Titration: 07/10/20 14:00 Dose: 10 munits/min, 10 mls/hr Documented by: Ondansetron HCl 8 mg/ Sodium (Chloride) 54 mls @ 200 mls/hr IV Q4H PRN PRN Reason: Nausea Tranexamic Acid 1,000 mg/ (Sodium Chloride) 110 mls @ 660 mls/hr IV ONETIME PRN PRN Reason: Bleeding Tranexamic Acid 1,000 mg/ (Sodium Chloride) 110 mls @ 660 mls/hr IV ONETIME PRN PRN Reason: Bleeding Cefazolin Sodium/Dextrose 2 gm (/ Premix) 50 mls @ 100 mls/hr IV ONETIME ONE Stop: 07/10/20 19:26 Last Admin: 07/10/20 19:24 Dose: 100 mls/hr Documented by: Cefazolin Sodium/Dextrose (Ancef 2 Gm/50 Ml) Confirm Administered Dose 50 mls @ as directed .ROUTE .STK-MED ONE Stop: 07/10/20 19:08 Lactated Ringer's (Ringers, Lactated) 1,000 mls @ as directed IV .STK-MED ONE Stop: 07/10/20 19:31 Ketorolac Tromethamine (Ketorolac 30 Mg/Ml Sdv) 15 mg IVPUSH Q6H [facility] Stop: 07/11/20 14:16 Last Admin: 07/11/20 16:19 Dose: 15 mg Documented by: Ketorolac Tromethamine (Ketorolac 30 Mg/Ml Sdv) 30 mg IVPUSH .STK-MED ONE Stop: 07/10/20 20:16 Methylergonovine Maleate (Methylergonovine 0.2 Mg/1 Ml Amp) 0.2 mg IM ASDIRECTED PRN PRN Reason: Hemorrhage Misoprostol (Misoprostol 400 Mcg (4 X 100 Mcg Tab)) 800 mcg RECTAL ASDIRECTED PRN PRN Reason: Hemorrhage Morphine Sulfate (Morphine Pf 1 Mg/Ml Amp) 0.2 mg ITHECAL .STK-MED ONE Stop: 07/10/20 19:46 Ondansetron HCl (Ondansetron 4 Mg/2 Ml Sdv) 4 mg IVPUSH Q6H PRN PRN Reason: nausea Last Admin: 07/10/20 14:53 Dose: 4 mg Documented by: Ondansetron HCl (Ondansetron 4 Mg/2 Ml Sdv) 4 mg IV .STK-MED ONE Stop: 07/10/20 19:31 Sodium Bicarbonate (Sodium Bicarbonate 4.2% 2.5 Meq/5 Ml Sdv) Confirm Administered Dose 2.5 meq .ROUTE .STK-MED ONE Stop: 07/10/20 15:17 Last Admin: 07/10/20 16:46 Dose: Not Given Documented by: Sodium Bicarbonate (Sodium Bicarbonate 4.2% 5 Meq/10 Ml Syringe) 0.5 meq .XX .STK-MED ONE Stop: 07/10/20 15:11 Sodium Chloride (Sodium Chloride 0.9% 10 Ml Syringe) 10 ml FLUSH ASDIRECTED PRN PRN Reason: Keep Vein Open Sodium Chloride (Sodium Chloride 0.9% 20 Ml Sdv) 0.4 ml .XX .STK-MED ONE Stop: 07/10/20 15:11 Sodium Chloride (Sodium Chloride 0.9% 10 Ml Syringe) 10 ml IV .STK-MED ONE Stop: 07/10/20 19:31 Sufentanil Citrate (Sufentanil 50 Mcg/1 Ml Amp) Confirm Administered Dose 50 mcg .ROUTE .STK-MED ONE Stop: 07/10/20 15:17 Last Admin: 07/10/20 16:46 Dose: Not Given Documented by: Sufentanil Citrate (Sufentanil 50 Mcg/1 Ml Amp) 20 mcg ITHECAL .STK-MED ONE Stop: 07/10/20 15:11 - Exam General: Reports: Alert, Oriented Lungs: Reports: Clear to Auscultation, Normal Respiratory Effort Cardiovascular: Reports: Regular Rate, Regular Rhythm, No Murmurs GI/Abdominal Exam: Soft Back Exam: Reports: Normal Inspection, Full Range of Motion Extremities: No Pedal Edema Skin: Reports: Warm, Dry, Intact Wound/Incisions: Reports: Healing Well, No Drainage Neurological: Reports: No New Focal Deficit Psy/Mental Status: Reports: Alert, Normal Affect, Normal Mood
[2020-07-13] MEDS ORDERED: Oxytocin/Normal Saline 30 UNIT/500 ML BAG IV ONE (12:29)
== END 2020-07-13 12:30 | disposition home or self-care (01) | DRG 540 ==
LOC: DL.OBCHECK 07:23 → DL.OB 09:16
PROVIDERS: ADMIT Family Medicine; ATTEND Family Medicine
PROC: 10D00Z1 Extraction of Products of Conception, Low, Open Approach (ICD-10-PCS; principal; 2020-07-10)
PROC: 4A1HXCZ Monitoring of Products of Conception, Cardiac Rate, External Approach (ICD-10-PCS; 2020-07-10)
DX: O65.9 Obstructed labor due to maternal pelvic abnormality, unspecified (principal); Z3A.39 39 weeks gestation of pregnancy; Z37.0 Single live birth; Q79.60 Ehlers-Danlos syndrome, unspecified; O32.9XX0 Maternal care for malpresentation of fetus, unspecified, not applicable or unspecified; O66.5 Attempted application of vacuum extractor and forceps; O99.814 Abnormal glucose complicating childbirth; O99.02 Anemia complicating childbirth; D62 Acute posthemorrhagic anemia; Z20.822 Contact with and (suspected) exposure to COVID-19
CPT/HCPCS: 36415; 51701; 51702; 59409; 85025; 85027; 86850; 86900; 86901; A9270-GY; J0171; J0690; J1100; J1885; J2274; J2405; J2590; J3010; J3490; J7120; U0002

== ENCOUNTER 2022-07-01 12:00 | Inpatient (IN) | payer BC ==
[2022-07-02] MEDS ORDERED: Carboprost Tromethamine 250 MCG/1 ML Amp IM PRN (09:29)
[2022-07-02] MEDS ORDERED: Misoprostol 400 MCG (4 X 100 MCG TAB) RECTAL ONE (09:29)
[2022-07-02] MEDS ORDERED: Sodium Chloride 0.9% 10 ML Syringe FLUSH PRN (09:29)
[2022-07-02] MEDS ORDERED: Methylergonovine 0.2 MG Tab PO PRN (09:29)
[2022-07-02] MEDS ORDERED: Tranexamic Acid 1,000 MG in Sodium Chloride 0.9% 100 ML IV PRN (09:29)
[2022-07-02] MEDS ORDERED: Oxytocin 10 Units/1 ML SDV IM PRN (09:29)
[2022-07-02] MEDS ORDERED: Lactated Ringers 1,000 ML IV SCH ×2 (09:30→13:15)
[2022-07-02] MEDS ORDERED: Oxytocin/Normal Saline 30 UNIT/500 ML BAG IV SCH (09:30)
[2022-07-02 10:24] LABS: BASOPHILS PERCENT AUTO 0.3 % (0.0-1.0); EOSINOPHILS PERCENT AUTO 2.8 % (1.0-3.0); HEMATOCRIT 42.3 % (37.0-47.0); HEMOGLOBIN 14.7 g/dL (12.0-16.0); MEAN CORPUSCULAR HEMOGLOBIN 31.4 pg (27.0-34.0); MEAN CORPUSCULAR HGB CONC 34.8 g/dL (33.0-35.0); MEAN CORPUSCULAR VOLUME 90.4 fL (80-100); NEUTROPHILS PERCENT AUTO 65.9 % (42.2-75.2); PLATELET COUNT,PLT 229 10^3/uL (150-450); RED BLOOD CELL COUNT 4.68 10^6/uL (4.2-5.4); WHITE BLOOD CELL COUNT,WBC 8.9 10^3/uL (5.0-10.0)
[2022-07-02] MEDS ORDERED: Citric Acid/Sodium Citrate Solution 30 ML Cup PO ONE (10:40)
[2022-07-02] MEDS: Lactated Ringers 1,000 ML IV SCH ×2 (11:03→15:03)
[2022-07-02] MEDS ORDERED: Oxytocin/Normal Saline 30 UNIT/500 ML BAG ONE (11:23)
[2022-07-02] MEDS ORDERED: Oxytocin 10 Units/1 ML SDV ONE (11:26)
[2022-07-02] MEDS ORDERED: ceFAZolin 2 GM Vial ONE (11:26)
[2022-07-02] MEDS ORDERED: ceFAZolin 2 GM Vial IVPUSH ONE (11:30)
[2022-07-02] MEDS ORDERED: Acetaminophen/oxyCODONE 325-5 MG Tab PO PRN (13:14)
[2022-07-02] MEDS ORDERED: Ondansetron 4 MG/2 ML SDV IVPUSH PRN (13:14)
[2022-07-02] MEDS ORDERED: diphenhydrAMINE 50 MG/ML SDV IVPUSH PRN (13:14)
[2022-07-02] MEDS ORDERED: Acetaminophen 325 MG Tab PO PRN (13:14)
[2022-07-02] MEDS ORDERED: Naloxone 2 MG/2 ML Syringe IVPUSH PRN (13:14)
[2022-07-02] MEDS ORDERED: ePHEDrine 50 MG/ML SDV IVPUSH PRN (13:14)
[2022-07-02] MEDS ORDERED: Methylergonovine 0.2 MG/1 ML Amp IM PRN (13:14)
[2022-07-02] MEDS ORDERED: Aluminum Hydroxide/Magnesium Hydroxide/Simethicone Susp 30 ML Cup PO PRN (13:14)
[2022-07-02] MEDS ORDERED: Calcium Carbonate 500 MG Tab.Chew PO PRN (13:16)
[2022-07-02] MEDS ORDERED: Metoclopramide 10 MG/2 ML SDV IVPUSH STA (15:35)
[2022-07-02] MEDS: Simethicone 80 MG Tab.Chew PO SCH ×3 (15:51→22:19)
[2022-07-02] MEDS ORDERED: Promethazine 25 MG/ML SDV IM ONE ×2 (17:37→18:57)
[2022-07-02] MEDS: Ketorolac 30 MG/ML SDV IVPUSH SCH (19:39)
[2022-07-02 19:44] LABS: BASOPHILS PERCENT AUTO 0.1 % (0.0-1.0); EOSINOPHILS PERCENT AUTO 0.1 % (1.0-3.0); HEMATOCRIT 40.4 % (37.0-47.0); HEMOGLOBIN 13.9 g/dL (12.0-16.0); MEAN CORPUSCULAR HEMOGLOBIN 31.5 pg (27.0-34.0); MEAN CORPUSCULAR HGB CONC 34.4 g/dL (33.0-35.0); MEAN CORPUSCULAR VOLUME 91.6 fL (80-100); MONOCYTES PERCENT AUTO 2.2 % (2-8); NEUTROPHILS PERCENT AUTO 91.6 % (42.2-75.2); PLATELET COUNT,PLT 192 10^3/uL (150-450); RED BLOOD CELL COUNT 4.41 10^6/uL (4.2-5.4); WHITE BLOOD CELL COUNT,WBC 15.9 10^3/uL (5.0-10.0)
[2022-07-02 20:03] LABS: A/G RATIO 0.67; ALBUMIN 2.6 g/dL (3.4-5.0); ANION GAP 16.8 mEq/L (7-13); BILIRUBIN TOTAL 0.3 mg/dL (0.2-1.0); BUN/CREATININE RATIO 17.2 (No establ ref range); CALCIUM 8.3 mg/dL (8.5-10.1); CREATININE 0.87 mg/dL (0.55-1.02); EST CRCL DRUG DOSING (CG) 98.53 mL/min; MAGNESIUM 1.6 mg/dL (1.8-2.4); PHOSPHORUS 4.1 mg/dL (2.6-4.7); POTASSIUM,K 3.8 mmol/L (3.5-5.1); PROTEIN TOTAL,TP 6.5 g/dL (6.4-8.2)
[2022-07-02] MEDS ORDERED: Magnesium Sulfate (4.06 MEQ/ML) 1 GM/2 ML SDV IM ONE (20:13)
[2022-07-02] MEDS ORDERED: Magnesium Sulfate/Water 2 GM in Premix Bag 1 BAG IV ONE (20:24)
[2022-07-02] MEDS: Sodium Chloride 0.9% 10 ML Syringe FLUSH SCH (23:10)
[2022-07-03] MEDS: Lactated Ringers 1,000 ML IV SCH (00:02)
[2022-07-03] MEDS: Ketorolac 30 MG/ML SDV IVPUSH SCH ×2 (00:58→07:34)
[2022-07-03 06:26] LABS: HEMATOCRIT 33.8 % (37.0-47.0); HEMOGLOBIN 11.4 g/dL (12.0-16.0); MEAN CORPUSCULAR HEMOGLOBIN 31.5 pg (27.0-34.0); MEAN CORPUSCULAR HGB CONC 33.7 g/dL (33.0-35.0); MEAN CORPUSCULAR VOLUME 93.4 fL (80-100); RED BLOOD CELL COUNT 3.62 10^6/uL (4.2-5.4); WHITE BLOOD CELL COUNT,WBC 11.6 10^3/uL (5.0-10.0)
[2022-07-03] MEDS: Prenatal Multivitamin with Calcium/Folic Acid/Iron Tab PO SCH ×2 (07:35→11:27)
[2022-07-03] MEDS: Simethicone 80 MG Tab.Chew PO SCH ×6 (07:36→21:03)
[2022-07-03] MEDS: Sodium Chloride 0.9% 10 ML Syringe FLUSH SCH ×2 (11:27→21:08)
[2022-07-03] MEDS: Acetaminophen/oxyCODONE 325-5 MG Tab PO PRN ×2 (15:32→21:03)
[2022-07-03] MEDS: Ibuprofen 800 MG Tab PO PRN (15:32)
[2022-07-03] MEDS: Docusate Sodium 100 MG Cap PO PRN (21:03)
[2022-07-04] MEDS: Ibuprofen 800 MG Tab PO PRN ×2 (01:09→09:22)
[2022-07-04] MEDS: Acetaminophen/oxyCODONE 325-5 MG Tab PO PRN (04:12)
[2022-07-04] MEDS: Docusate Sodium 100 MG Cap PO PRN (07:52)
[2022-07-04] MEDS: Prenatal Multivitamin with Calcium/Folic Acid/Iron Tab PO SCH ×2 (07:53→09:52)
[2022-07-04] MEDS: Simethicone 80 MG Tab.Chew PO SCH ×2 (07:53→09:52)
[2022-07-04] MEDS: Sodium Chloride 0.9% 10 ML Syringe FLUSH SCH (09:52)
== END 2022-07-04 11:30 | disposition home or self-care (01) | DRG 540 ==
LOC: DL.MS 07-02 09:58 → OBSVTOIN 07-02 12:25 → DL.MS 07-02 12:25
PROVIDERS: ADMIT Family Medicine; ATTEND Family Medicine
PROC: 10D00Z1 Extraction of Products of Conception, Low, Open Approach (ICD-10-PCS; principal; 2022-07-02)
DX: O34.211 Maternal care for low transverse scar from previous cesarean delivery (principal); Z37.0 Single live birth; K56.7 Ileus, unspecified; O99.63 Diseases of the digestive system complicating the puerperium; O99.824 Streptococcus B carrier state complicating childbirth; Z88.8 Allergy status to other drugs, medicaments and biological substances; Z3A.39 39 weeks gestation of pregnancy
CPT/HCPCS: 01961; 36415; 59025; 80053; 83735; 84100; 85025; 85027; 86850; 86900; 86901; A9270-GY; J1885; J2405; J2550; J2590; J2765; J3475; J3490; J7120

== ENCOUNTER 2023-01-31 05:46 | Day surgery (SDC) | payer BC ==
[~2023-01-31 05:46] MED LIST: Sodium Chloride 0.9% 10 ML Syringe FLUSH PRN; Sodium Chloride 0.9% 10 ML Syringe FLUSH SCH
[2023-01-31] MEDS ORDERED: Dextrose 5%-0.45% NaCl 1,000 ML IV SCH (06:00)
[2023-01-31] MEDS ORDERED: fentaNYL 100 MCG/2 ML SDV ONE (06:11)
[2023-01-31] MEDS ORDERED: Midazolam 1 MG/ML 2 ML SDV ONE (06:11)
[2023-01-31] MEDS ORDERED: Midazolam 1 MG/ML 2 ML SDV IV ONE ×3 (06:11→07:02)
[2023-01-31] MEDS ORDERED: fentaNYL 100 MCG/2 ML SDV IV ONE ×3 (06:11→07:01)
== END 2023-01-31 09:15 | disposition home or self-care (01) ==
LOC: DL.ENDO 05:46
PROVIDERS: ATTEND Internal Medicine Gastroenterology
DX: K26.3 Acute duodenal ulcer without hemorrhage or perforation (principal); K20.0 Eosinophilic esophagitis; K21.9 Gastro-esophageal reflux disease without esophagitis; K58.9 Irritable bowel syndrome, unspecified; F32.A Depression, unspecified; Z88.2 Allergy status to sulfonamides
CPT/HCPCS: 81025; 87077; J2250; J3010; J7042

== ENCOUNTER 2024-06-12 05:19 | Day surgery (SDC) | payer BC ==
[2024-06-12] MEDS: Dextrose 5%-0.45% NaCl 1,000 ML IV SCH (05:49)
[2024-06-12] MEDS ORDERED: Midazolam 1 MG/ML 2 ML SDV ONE (06:17)
[2024-06-12] MEDS ORDERED: fentaNYL 100 MCG/2 ML SDV IV ONE (06:17)
[2024-06-12] MEDS ORDERED: fentaNYL 100 MCG/2 ML SDV ONE (06:17)
[2024-06-12] MEDS ORDERED: Midazolam 1 MG/ML 2 ML SDV IV ONE (06:17)
[2024-06-12] MEDS: fentaNYL 100 MCG/2 ML SDV IV ONE ×2 (06:22)
[2024-06-12] MEDS: Midazolam 1 MG/ML 2 ML SDV IV ONE ×6 (06:23→06:30)
== END 2024-06-12 09:46 | disposition home or self-care (01) ==
LOC: DL.ENDO 05:19
PROVIDERS: ATTEND Internal Medicine Gastroenterology
DX: K52.9 Noninfective gastroenteritis and colitis, unspecified (principal); F32.A Depression, unspecified
CPT/HCPCS: 45380; 81025; J2250; J3010